=== PATIENT | female | born 1950 | race Caucasian/White ===

== ENCOUNTER 2017-08-02 23:36 | Inpatient (IN) | payer OTHER, MEDICARE ==
[~2017-08-02] VITALS: Ht 172.7 cm; Wt 108.9 kg
[~2017-08-02 23:36] MED LIST: ASPI81 PO; CLON.1 PO; COZA100T PO; FLEC50TA PO; FURO20TA PO; IBUP-238 PO; METO25 PO; PRED20 PO; SUMA5I; TRAM50 PO
[2017-08-02 23:49] VITALS: BP 212/174; PULSE 113; TEMP 101.7; O2SAT 97
[2017-08-03] VITALS (9 sets, daily range): BP systolic 148–191; BP diastolic 67–86; PULSE 87–107; RESP 18; TEMP 98.1–98.6; O2SAT 93–98
--- NOTE | 2017-08-03 01:38 | PD ---
HPI Chief Complaint: Cold / Flu Symptoms Time Seen by Provider: 01:34 Travel History International Travel<30 days: No Contact w/Intl Traveler<30days: No Traveled to known affect area: No History of Present Illness HPI 67-year-old female patient with previous history of pneumonia, here because she has been having several days of coughing, shortness of breath, feeling more tired than usual, vomiting 1. She denies any abdominal pain, diarrhea, or any other symptoms. She states that she takes care of her grandson who also goes to daycare and he has been having some cough and cold symptoms recently and she keeps getting his viral infections. She also had a fever today. Modifying Factors: None Associated Signs & Symptoms: Cough, shortness of breath, feeling more tired, vomiting, fever Risk Factors: Possible sick contact, grandson PFSH Past Medical History Arthritis: Yes Atrial Fibrillation: Yes Blood Disorders: No Heart Rhythm Problems: Yes (A-FIB) Cancer: No Cardiovascular Problems: Yes Diabetes: No Diminished Hearing: No Endocrine: No Glaucoma: No Genitourinary: No Hepatitis: No Hiatal Hernia: No Hypertension: Yes Immune Disorder: No Medical other: Yes (arthritis) Musculoskeletal: Yes Neurologic: Yes Psychiatric: No Reproductive: No Respiratory: No Immunizations Current: Yes Migraines: Yes Thyroid Disease: No ?: Not Past Surgical History Abdominal Surgery: Yes (TAHBSO) Appendectomy: Yes Gynecologic Surgery: Yes (total hysterectomy) Hysterectomy: Yes Joint Replacement: Yes (right hip) Other Surgery: Yes Social History Alcohol Use: No Tobacco Use: No Substance Use: No Allergies-Medications (Allergen,Severity, Reaction): Coded Allergies: prochlorperazine (Unverified Allergy, Intermediate, IRRITABILITY, 08/03/17) Reported Meds & Prescriptions Reported Meds & Active Scripts Active Ultram (Tramadol HCl) 50 Mg Tab 50 Mg PO Q6H PRN FOR PAIN Deltasone 20 Mg Tab (Prednisone) 20 Mg Tab 20 Mg PO BID Motrin (Ibuprofen) 800 Mg Tab 800 Mg PO TIDPRN FOR PAIN Reported Metoprolol Tartrate 25 mg (Metoprolol Tartrate) 25 Mg Tab 25 Mg PO BID Flecainide Acetate Unknown Strength Tab Unknown Dose PO Q12 Cozaar (Losartan Potassium) 100 Mg Tab 100 Mg PO Furosemide 20 Mg Tab 20 Mg PO Imitrex (Sumatriptan Succinate) 5 Mg Naspr 5 Mg NA PRN Aspirin 81 Mg Tab 81 Mg PO DAILY Catapres 0.1 mg (Clonidine HCl) 0.1 Mg Tab 0.1 Mg PO BID Review of Systems Except as stated in HPI: all other systems reviewed are Neg Physical Exam Narrative GENERAL: Well-developed elderly female patient currently in mild distress. Awake and oriented 3. SKIN: Focused skin assessment warm/dry. HEAD: Atraumatic. Normocephalic. EYES: Pupils equal and round. No scleral icterus. No injection or drainage. ENT: No nasal bleeding or discharge. Mucous membranes pink and moist. NECK: Trachea midline. No JVD. Supple. CARDIOVASCULAR: Regular rate and rhythm. No murmur appreciated. RESPIRATORY: Mild accessory muscle use. Wheezing throughout bilaterally. Breath sounds equal bilaterally. GASTROINTESTINAL: Abdomen soft, non-tender, nondistended. Hepatic and splenic margins not palpable. MUSCULOSKELETAL: No obvious deformities. No clubbing. No cyanosis. No edema. NEUROLOGICAL: Awake and alert. No obvious cranial nerve deficits. Motor grossly within normal limits. Normal speech. PSYCHIATRIC: Appropriate mood and affect; insight and judgment normal. Data Data Last Documented VS Vital Signs Date Time Temp Pulse Resp B/P (MAP) Pulse Ox O2 Delivery O2 Flow Rate FiO2 08/03/17 02:30 100 18 172/74 (106) 98 Room Air 08/02/17 23:49 101.7 Orders Orders Complete Blood Count With Diff (08/03/17 01:34) Comprehensive Metabolic Panel (08/03/17 01:34) B-Type Natriuretic Peptide (08/03/17 01:34) Influenzae A/B Antigen (08/03/17 01:34) Blood Culture (08/03/17 01:34) Iv Access Insert/Monitor (08/03/17 01:34) Electrocardiogram (08/03/17 01:34) Ecg Monitoring (08/03/17:34) Oximetry (08/03/17 01:34) Oxygen Administration (08/03/17 01:34) Chest, Single Ap (08/03/17 01:34) Sodium Chloride 0.9% Flush (Ns Flush) (08/03/17 01:45) Methylprednisolone So Succ Inj (Solumedr (08/03/17 01:45) Albuterol-Ipratropium Neb (Duoneb Neb) (08/03/17 01:45) Sodium Chlorid 0.9% 500 Ml Inj (Ns 500 M (08/03/17 01:45) Acetaminophen (Tylenol) (08/03/17 01:45) Ceftriaxone Inj (Rocephin Inj) (08/03/17 02:30) Azithromycin Inj (Zithromax Inj) (08/03/17 02:30) Lactic Acid Sepsis Protocol (08/03/17 02:31) Admit Order (Ed Use Only) (08/03/17 03:38) Labs Laboratory Tests Test 08/03/17 01:45 08/03/17 03:00 White Blood Count 21.0 TH/MM3 Red Blood Count 4.52 MIL/MM3 Hemoglobin 11.8 GM/DL Hematocrit 33.9 % Mean Corpuscular Volume 75.0 FL Mean Corpuscular Hemoglobin 26.0 PG Mean Corpuscular Hemoglobin Concent 34.7 % Red Cell Distribution Width 15.0 % Platelet Count 173 TH/MM3 Mean Platelet Volume 8.2 FL Neutrophils (%) (Auto) 89.4 % Lymphocytes (%) (Auto) 4.9 % Monocytes (%) (Auto) 5.4 % Eosinophils (%) (Auto) 0.1 % Basophils (%) (Auto) 0.2 % Neutrophils # (Auto) 18.8 TH/MM3 Lymphocytes # (Auto) 1.0 TH/MM3 Monocytes # (Auto) 1.1 TH/MM3 Eosinophils # (Auto) 0.0 TH/MM3 Basophils # (Auto) 0.0 TH/MM3 CBC Comment DIFF FINAL Differential Comment Blood Urea Nitrogen 18 MG/DL Creatinine 0.51 MG/DL Random Glucose 125 MG/DL Total Protein 6.7 GM/DL Albumin 3.7 GM/DL Calcium Level 8.8 MG/DL Alkaline Phosphatase 79 U/L Aspartate Amino Transf (AST/SGOT) 17 U/L Alanine Aminotransferase (ALT/SGPT) 21 U/L Total Bilirubin 0.7 MG/DL Sodium Level 136 MEQ/L Potassium Level 3.2 MEQ/L Chloride Level 102 MEQ/L Carbon Dioxide Level 26.5 MEQ/L Anion Gap 8 MEQ/L Estimat Glomerular Filtration Rate 120 ML/MIN B-Type Natriuretic Peptide 140 PG/ML Lactic Acid Level 0.9 mmol/L MDM Medical Decision Making Medical Screen Exam Complete: Yes Emergency Medical Condition: Yes Medical Record Reviewed: Yes Interpretation(s) Laboratory Tests Test 08/03/17 01:45 08/03/17 03:00 White Blood Count 21.0 TH/MM3 (4.0-11.0) Hematocrit 33.9 % (35.0-46.0) Mean Corpuscular Volume 75.0 FL (80.0-100.0) Mean Corpuscular Hemoglobin 26.0 PG (27.0-34.0) Neutrophils (%) (Auto) 89.4 % (16.0-70.0) Lymphocytes (%) (Auto) 4.9 % (9.0-44.0) Neutrophils # (Auto) 18.8 TH/MM3 (1.8-7.7) Monocytes # (Auto) 1.1 TH/MM3 (0-0.9) Random Glucose 125 MG/DL (74-106) Potassium Level 3.2 MEQ/L (3.5-5.1) B-Type Natriuretic Peptide 140 PG/ML (0-100) Last 24 hours Impressions Chest X-Ray 08/03/17 0134 Signed Impressions: Service Date/Time: Thursday, August 03, 2017 01:43 - CONCLUSION: Mild right base consolidation. Panfilo Rosas MD Differential Diagnosis Bronchitis versus pneumonia versus influenza Narrative Course Chest x-ray shows right-sided pneumonia. She was given nebulizers with improvement breathing. Her lab work shows significant leukocytosis. IV antibiotics were initiated after blood cultures are drawn. Case is discussed with Dr. Bullock for admission. Diagnosis Primary Impression: Pneumonia Admitting Information Admitting Physician Requests: Admit Glenda Gil MD Aug 03, 2017 01:38
[2017-08-03] MEDS ORDERED: SODIUM CHLORID 0.9% 500 ML INJ 500 ML IV ONE (01:45)
[2017-08-03] MEDS ORDERED: methylPREDNISolone SOD SUCC 125 MG/2 ML VIAL IV PUSH ONE (01:45)
[2017-08-03] MEDS ORDERED: SODIUM CHLORIDE 0.9% FLUSH 10 ML FLUSH IVF PRN (01:45)
[2017-08-03] MEDS ORDERED: ACETAMINOPHEN 500 MG CPLT PO ONE (01:45)
[2017-08-03] MEDS: RESP: ALBUTEROL 2.5 MG/IPRATROPIUM 0.5 MG NEB (SCH) INH (01:59)
--- NOTE | 2017-08-03 02:03 | RADRPT ---
EXAM DATE/TIME: 08/03/2017 01:43 [facility] COMPARISON: No previous studies available for comparison. INDICATIONS : Third episode of cold and flu symptoms since late March of 2017. MEDICAL HISTORY : None. SURGICAL HISTORY : None. ENCOUNTER: Initial ACUITY: 3 months PAIN SCORE: 0/10 LOCATION: Bilateral chest FINDINGS: Mild atelectasis versus infiltrates in right lung base. Left lung is clear. No pleural effusion or pn eumothorax on either side. Heart size normal. CONCLUSION: Mild right base consolidation. Panfilo Rosas MD on August 03, 2017 at 2:01 Board Certified Radiologist. This report was verified electronically.
[2017-08-03 02:12] LABS: AUTOMATED NEUTROPHIL # 18.8 TH/MM3 (1.8-7.7); BASOPHIL % 0.2 % (0.0-2.0); EOSINOPHIL % 0.1 % (0.0-4.0); HEMATOCRIT 33.9 % (35.0-46.0); HEMOGLOBIN 11.8 GM/DL (11.6-15.3); LYMPH % 4.9 % (9.0-44.0); MEAN CORPUSCULAR HGB CONC 34.7 % (32.0-36.0); MEAN PLATELET VOLUME 8.2 FL (7.0-11.0); MONO % 5.4 % (0.0-8.0); MONOCYTE # 1.1 TH/MM3 (0-0.9); NEUT % 89.4 % (16.0-70.0); PLATELET COUNT 173 TH/MM3 (150-450); RED BLOOD COUNT 4.52 MIL/MM3 (4.00-5.30)
[2017-08-03 02:23] LABS: ALBUMIN 3.7 GM/DL (3.4-5.0); ALT (GPT) 21 U/L (10-53); AST (GOT) 17 U/L (15-37); BICARBONATE 26.5 MEQ/L (21.0-32.0); BLOOD UREA NITROGEN 18 MG/DL (7-18); CALCIUM 8.8 MG/DL (8.5-10.1); CHLORIDE 102 MEQ/L (98-107); CREATININE 0.51 MG/DL (0.50-1.00); GLOMERULAR FILTRATION RATE 120 ML/MIN (>89); GLUCOSE,RANDOM 125 MG/DL (74-106); SODIUM (NA) 136 MEQ/L (136-145)
[2017-08-03 02:25] LABS: ALKALINE PHOSPHATASE 79 U/L (45-117); TOTAL BILIRUBIN ADULT 0.7 MG/DL (0.2-1.0); TOTAL PROTEIN 6.7 GM/DL (6.4-8.2)
[2017-08-03] MEDS ORDERED: AZITHROMYCIN INJ 500 MG in SODIUM CHLOR 0.9% 250 ML INJ 250 ML IV STA (02:30)
[2017-08-03] MEDS ORDERED: cefTRIAXone INJ 2,000 MG in SODIUM CHLORIDE 0.9% INJ 100 ML IV STA (02:30)
[2017-08-03] MEDS ORDERED: SODIUM CHLOR 0.9% 1000 ML INJ 1,000 ML IV SCH (03:41)
[2017-08-03] MEDS ORDERED: LACTULOSE SYRUP 20 GM/30 ML CUP PO PRN (03:45)
[2017-08-03] MEDS ORDERED: SODIUM CHLORIDE 0.9% FLUSH 10 ML FLUSH IV FLUSH PRN (03:45)
[2017-08-03] MEDS ORDERED: ACETAMINOPHEN/HYDROcodone 325 MG/5 MG TAB PO PRN (03:45)
[2017-08-03] MEDS ORDERED: RESP: ALBUTEROL 2.5 MG/IPRATROPIUM 0.5 MG NEB (PRN) NEB (03:45)
[2017-08-03] MEDS ORDERED: BISACODYL 10 MG SUPP RECTAL PRN (03:45)
[2017-08-03] MEDS ORDERED: ONDANSETRON HCL 4 MG/2 ML VIAL IVP PRN (03:45)
[2017-08-03] MEDS ORDERED: ACETAMINOPHEN 325 MG TAB PO PRN (03:45)
[2017-08-03] MEDS ORDERED: SENNOSIDES 8.6 MG TAB PO PRN (03:45)
[2017-08-03] MEDS ORDERED: MORPHINE SULFATE 2 MG/ML INJ IV PUSH PRN (03:45)
[2017-08-03] MEDS ORDERED: MAGNESIUM HYDROXIDE SUSP 30 ML CUP PO PRN (03:45)
--- NOTE | 2017-08-03 04:24 | HHI.HP ---
[facility] [place] [facility] Janis Reza MD Admission Diagnosis pneumonia Diagnoses: (1) Sepsis Diagnosis: Principal (2) PNA (pneumonia) Diagnosis: Principal (3) A-fib Diagnosis: Principal (4) HTN (hypertension) Travel History International Travel<30 Days: No Contact w/Intl Traveler <30 Da: No Traveled to Known Affected Are: No History of Present Illness This is a 67-year-old female with a PMH of HTN, A. fib on ASA and Arthritis presented to the ER with complaints of SOB and cough x2-3 days. States she's been having symptoms since March and has been on and off antibiotics as other family members have been sick as well. States she had been feeling better until a few days ago when she developed cough and congestion. Today w/ fever at home in addition to SOB. On arrival, BP 212/174, HR 113, O2 sat 97% on RA, Temp 101.7. WBC 21. Chemistry essentially unremarkable except for K+ 3.2. CXR with mild right base consolidation. S/p Blood Cultures, Rocephin/ Zithro in ER. Review of Systems Except as stated in HPI: all other systems reviewed are Neg ROS: 14 point review of systems otherwise negative. Past Family Social History Past Medical History PMH: HTN, A. fib on ASA and Arthritis Past Surgical History PAST SURGICAL HISTORY: Hysterectomy, Appendectomy, Right Hip Replacement Allergies: Coded Allergies: prochlorperazine (Unverified Allergy, Intermediate, IRRITABILITY, 08/03/17) Family History PAST FAMILY HISTORY: Reviewed. No h/o DM or CAD Social History PAST SOCIAL HISTORY: Negative for alcohol, tobacco or drugs. Physical Exam Vital Signs Vital Signs Date Time Temp Pulse Resp B/P (MAP) Pulse Ox O2 Delivery O2 Flow Rate FiO2 08/03/17 04:07 96 08/03/17 02:30 100 18 172/74 (106) 98 Room Air 08/03/17 00:43 107 18 191/86 (121) 98 Room Air 08/03/17 00:30 18 98 Room Air 08/03/17 00:30 97 Room Air 08/02/17 23:49 101.7 113 212/174 (187) 97 Physical Exam PE: GENERAL: Pleasant middle-aged white female in no acute distress. HEENT: PERRLA, EOMI. No scleral icterus or conjunctival pallor. No lid lag or facial droop. CARDIOVASCULAR: Regular rate and rhythm. No obvious murmurs to auscultation. No chest tenderness to palpation. RESPIRATORY: No obvious rhonchi or wheezing. Clear to auscultation. Breath sounds equal bilaterally. GASTROINTESTINAL: Abdomen soft, non-tender, nondistended. BS normal. MUSCULOSKELETAL: Extremities without clubbing, cyanosis, or edema. No obvious deformities. NEUROLOGICAL: Awake, alert and oriented x4. No focal neurologic deficits. Moving both upper and lower extremities spontaneously. Laboratory Laboratory Tests Test 08/03/17 01:45 08/03/17 03:00 White Blood Count 21.0 Red Blood Count 4.52 Hemoglobin 11.8 Hematocrit 33.9 Mean Corpuscular Volume 75.0 Mean Corpuscular Hemoglobin 26.0 Mean Corpuscular Hemoglobin Concent 34.7 Red Cell Distribution Width 15.0 Platelet Count 173 Mean Platelet Volume 8.2 Neutrophils (%) (Auto) 89.4 Lymphocytes (%) (Auto) 4.9 Monocytes (%) (Auto) 5.4 Eosinophils (%) (Auto) 0.1 Basophils (%) (Auto) 0.2 Neutrophils # (Auto) 18.8 Lymphocytes # (Auto) 1.0 Monocytes # (Auto) 1.1 Eosinophils # (Auto) 0.0 Basophils # (Auto) 0.0 CBC Comment DIFF FINAL Differential Comment Blood Urea Nitrogen 18 Creatinine 0.51 Random Glucose 125 Total Protein 6.7 Albumin 3.7 Calcium Level 8.8 Alkaline Phosphatase 79 Aspartate Amino Transf (AST/SGOT) 17 Alanine Aminotransferase (ALT/SGPT) 21 Total Bilirubin 0.7 Sodium Level 136 Potassium Level 3.2 Chloride Level 102 Carbon Dioxide Level 26.5 Anion Gap 8 Estimat Glomerular Filtration Rate 120 B-Type Natriuretic Peptide 140 Lactic Acid Level 0.9 Date/Time Source Procedure Growth Status 08/03/17 01:45 Blood Peripheral Aerobic Blood Culture Pending Received 08/03/17 01:45 Blood Peripheral Anaerobic Blood Culture Pending Received 08/03/17 01:50 Nasal Washing Influenza Types A,B Antigen (VIOLETTA) - Final NEGATIVE FOR FLU A AND B ANTIGEN.... Complete Result Diagram: 08/03/1714408/03/17144 Caprini VTE Risk Assessment Caprini VTE Risk Assessment: No/Low Risk (score <= 1) Caprini Risk Assessment Model Point Value = 1 Point Value = 2 Point Value = 3 Point Value = 5 Age 41-60 Minor surgery BMI > 25 kg/m2 Swollen legs Varicose veins or History of unexplained or recurrent spontaneous Oral contraceptives or hormone replacement Sepsis (< 1 month) Serious lung disease, including pneumonia (< 1 month) Abnormal pulmonary function Acute myocardial infarction Congestive heart failure (< 1 month) History of inflammatory bowel disease Medical patient at bed rest Age 61-74 Arthroscopic surgery Major open surgery (> 45 min) Laparoscopic surgery (> 45 min) Malignancy Confined to bed (> 72 hours) Immobilizing plaster cast Central venous access Age >= 75 History of VTE Family history of VTE Factor V Leiden Prothrombin [id number] Lupus anticoagulant Anticardiolipin antibodies Elevated serum homocysteine Heparin-induced thrombocytopenia Other congenital or acquired thrombophilia Stroke (< 1 month) Elective arthroplasty Hip, pelvis, or leg fracture Acute spinal cord injury (< 1 month) Prophylaxis Regimen Total Risk Factor Score Risk Level Prophylaxis Regimen 0-1 Low Early ambulation 2 Moderate Order ONE of the following: *Sequential Compression Device (SCD) *Heparin 5000 units SQ BID 3-4 Higher Order ONE of the following medications: *Heparin 5000 units SQ TID *Enoxaparin/Lovenox 40 mg SQ daily (WT < 150 kg, CrCl > 30 mL/min) *Enoxaparin/Lovenox 30 mg SQ daily (WT < 150 kg, CrCl > 10-29 mL/min) *Enoxaparin/Lovenox 30 mg SQ BID (WT < 150 kg, CrCl > 30 mL/min) AND/OR *Sequential Compression Device (SCD) 5 or more Highest Order ONE of the following medications: *Heparin 5000 units SQ TID (Preferred with Epidurals) *Enoxaparin/Lovenox 40 mg SQ daily (WT < 150 kg, CrCl > 30 mL/min) *Enoxaparin/Lovenox 30 mg SQ daily (WT < 150 kg, CrCl > 10-29 mL/min) *Enoxaparin/Lovenox 30 mg SQ BID (WT < 150 kg, CrCl > 30 mL/min) AND *Sequential Compression Device (SCD) Assessment and Plan Problem List: (1) Sepsis ICD Code: A41.9 - Sepsis, unspecified organism (2) PNA (pneumonia) ICD Code: J18.9 - Pneumonia, unspecified organism (3) HTN (hypertension) ICD Code: I10 - Essential (primary) hypertension (4) A-fib ICD Code: I48.91 - Unspecified atrial fibrillation Assessment and Plan A/P: 1. Sepsis: Temp 101.7, HR 113, WBC 21, Source-PNA. S/p Blood Cultures, Rocephin/Zithro IV. Follow up cultures, continue IV Abx. 2. PNA: cough/fever/SOB. CXR w/ mild right base consolidation, images reviewed by me. Check Sputum Cultures. Continue w/ IV Abx. DuoNeb prn. 3. A-fib: Chronic. On Metoprolol and ASA, will resume home medications. Telemetry. 4. HTN: Uncontrolled. BP 212/174, HR 113 on arrival. Resume home medications once verified. Monitor BP. Antihypertensives as needed. 5. DVT Prophylaxis: Lovenox 6. Social work for d/c planning as needed. 7. Case discussed w/ ER physician at length, labs/records/imaging reviewed by me. Physician Certification 2 Midnight Certification Type: Admission for Inpatient Services Order for Inpatient Services The services are ordered in accordance with Medicare regulations or non- Medicare payer requirements, as applicable. In the case of services not specified as inpatient-only, they are appropriately provided as inpatient services in accordance with the 2-midnight benchmark. Estimated LOS (days): 2 days is the estimated time the patient will need to remain in the hospital, assuming treatment plan goals are met and no additional complications. Post-Hospital Plan: Not yet determined Lorena Lynn MD Aug 03, 2017 04:24
[2017-08-03] MEDS ORDERED: POTASSIUM CHLORIDE 10 MEQ CAP PO ONE (07:45)
[2017-08-03] MEDS: DOCUSATE SODIUM 50 MG/SENNA 8.6 MG TAB PO SCH ×2 (09:00→21:00)
[2017-08-03] MEDS: SODIUM CHLORIDE 0.9% FLUSH 10 ML FLUSH IV FLUSH SCH ×2 (10:56→21:00)
[2017-08-03] MEDS: NS + KCL 20 MEQ INJ 1,000 ML IV SCH ×3 (10:56→22:30)
[2017-08-03] MEDS: guaiFENesin E.R. 600 MG TAB PO SCH ×2 (10:57→21:00)
[2017-08-03] MEDS: ENOXAPARIN SODIUM 40 MG/0.4 ML SYRINGE SQ SCH (10:57)
--- NOTE | 2017-08-03 13:56 | HHI.PR ---
Subjective Remarks Patient states that she does not feel well. She feels exhausted and warm. Denies chest pain, dyspnea, nausea, vomiting. Objective Vitals Vital Signs Date Time Temp Pulse Resp B/P (MAP) Pulse Ox O2 Delivery O2 Flow Rate FiO2 08/03/17 12:00 98.1 94 18 168/74 (105) 96 08/03/17 08:00 98.4 104 18 158/81 (106) 93 08/03/17 05:45 98.6 99 18 148/67 (94) 98 08/03/17 05:08 08/03/17 04:07 96 08/03/17 02:30 100 18 172/74 (106) 98 Room Air 08/03/17 00:43 107 18 191/86 (121) 98 Room Air 08/03/17 00:30 18 98 Room Air 08/03/17 00:30 97 Room Air 08/02/17 23:49 101.7 113 212/174 (187) 97 I/O 08/02/17 08/02/17 08/02/17 08/03/17 08/03/17 08/03/17 06:59 14:59 22:59 06:59 14:59 22:59 Intake Total 850 ml Balance 850 ml Intake IV Total 850 ml Result Diagram: 08/03/17 0145 08/03/17 014 Imaging Last Impressions Chest X-Ray 08/03/17 013 Signed Impressions: Service Date/Time: Thursday, August 03, 2017 01:43 - CONCLUSION: Mild right base consolidation. Panfilo Rosas MD Objective Remarks General: No acute distress. Heart: Regular rate and rhythm. No murmur. Lungs: Clear to auscultation bilaterally. No wheezes, rales, or rhonchi. Breathing is nonlabored. Abdomen: Soft, nontender, nondistended. Extremities: No lower extremity edema. Psych: Alert and oriented. Procedures None Urinary Catheter: No Vascular Central Line Catheter: No A/P Problem List: (1) Sepsis ICD Code: A41.9 - Sepsis, unspecified organism (2) PNA (pneumonia) ICD Code: J18.9 - Pneumonia, unspecified organism (3) HTN (hypertension) ICD Code: I10 - Essential (primary) hypertension (4) A-fib ICD Code: I48.91 - Unspecified atrial fibrillation Assessment and Plan 1. Sepsis: Patient presented with fever, tachycardia, leukocytosis. Source is pneumonia. Blood cultures are pending. Continue Rocephin, azithromycin. DuoNeb as needed. Supplemental oxygen as needed. 2. Atrial fibrillation: Chronic. Continue metoprolol, aspirin. Monitor on telemetry. 3. Hypertension: Poorly controlled. Resume home medications. Patient's nurse is completing the medication reconciliation at this time. 4. Hypokalemia: Supplement potassium. 5. DVT prophylaxis: Lovenox. Juan M Squires MD Aug 03, 2017 13:56
[2017-08-03] MEDS ORDERED: CLON0.3T PO (15:11)
[2017-08-03] MEDS ORDERED: SPIRCAP INH (15:11)
[2017-08-03] MEDS ORDERED: SIMV20TA PO (15:11)
[2017-08-03] MEDS ORDERED: POTA10CA PO (15:11)
[2017-08-03] MEDS ORDERED: AMLO5 PO (15:11)
[2017-08-03] MEDS: cefTRIAXone INJ 1,000 MG in SODIUM CHLORIDE 0.9% INJ 100 ML IV SCH (22:00)
[2017-08-03] MEDS: AZITHROMYCIN INJ 500 MG in SODIUM CHLOR 0.9% 250 ML INJ 250 ML IV SCH (23:00)
[2017-08-03] MEDS ORDERED: cloNIDine HCL 0.1 MG TAB PO SCH (23:30)
[2017-08-03] MEDS: METOPROLOL TARTRATE 25 MG TAB PO SCH (23:30)
[2017-08-03] MEDS: amLODIPine BESYLATE 5 MG TAB PO SCH (23:30)
--- NOTE | 2017-08-03 23:52 | EKG ---
Date Performed: 08/03/2017 Time Performed: 01:50:19 PTAGE: 67 years EKG: SINUS TACHYCARDIA NONSPECIFIC ST & T-WAVE ABNORMALITY ABNORMAL RHYTHM ECG PREVIOUS TRACING : 06/22/2008 09.56 Compared to prior tracing, rate has increased with ST/T wa ve changes noted DOCTOR: Cesar Brenner Interpretating Date/Time 08/03/2017 23:51:33
[2017-08-04] VITALS: BP 180/88; PULSE 88; PULSE 93; RESP 20; TEMP 97.8; O2SAT 97
[2017-08-04 04:00] VITALS: BP 185/91; PULSE 68; PULSE 71; RESP 20; TEMP 97.9; O2SAT 97
[2017-08-04] MEDS ORDERED: traMADol HCL 50 MG TAB PO PRN (07:30)
[2017-08-04 08:00] VITALS: BP 168/74; PULSE 81; PULSE 84; RESP 15; TEMP 97.9; O2SAT 97
[2017-08-04 08:47] LABS: AUTOMATED NEUTROPHIL # 11.8 TH/MM3 (1.8-7.7); BASOPHIL % 0.1 % (0.0-2.0); EOSINOPHIL % 0.2 % (0.0-4.0); HEMATOCRIT 31.1 % (35.0-46.0); HEMOGLOBIN 10.6 GM/DL (11.6-15.3); LYMPH % 14.2 % (9.0-44.0); LYMPHOCYTE # 2.2 TH/MM3 (1.0-4.8); MEAN CELL VOLUME 76.8 FL (80.0-100.0); MEAN CORPUSCULAR HEMOGLOBIN 26.1 PG (27.0-34.0); MEAN PLATELET VOLUME 8.6 FL (7.0-11.0); MONO % 7.9 % (0.0-8.0); MONOCYTE # 1.2 TH/MM3 (0-0.9); NEUT % 77.6 % (16.0-70.0); PLATELET COUNT 163 TH/MM3 (150-450); RED BLOOD COUNT 4.05 MIL/MM3 (4.00-5.30); RED CELL DISTRIBUTION WIDTH 15.4 % (11.6-17.2); WHITE BLOOD COUNT 15.2 TH/MM3 (4.0-11.0)
[2017-08-04] MEDS: DOCUSATE SODIUM 50 MG/SENNA 8.6 MG TAB PO SCH ×2 (09:00→21:00)
[2017-08-04] MEDS: TIOTROPIUM BROMIDE 18 MCG INH INH SCH (09:00)
[2017-08-04] MEDS ORDERED: POTASSIUM CHLORIDE 10 MEQ CAP PO SCH (09:00)
[2017-08-04] MEDS ORDERED: cloNIDine HCL 0.3 MG TAB PO SCH (09:00)
[2017-08-04] MEDS: SODIUM CHLORIDE 0.9% FLUSH 10 ML FLUSH IV FLUSH SCH ×2 (09:00→21:29)
[2017-08-04 09:15] LABS: ALBUMIN 3.1 GM/DL (3.4-5.0); AST (GOT) 14 U/L (15-37); BICARBONATE 24.7 MEQ/L (21.0-32.0); BLOOD UREA NITROGEN 13 MG/DL (7-18); CALCIUM 8.5 MG/DL (8.5-10.1); CHLORIDE 105 MEQ/L (98-107); CREATININE 0.43 MG/DL (0.50-1.00); GLOMERULAR FILTRATION RATE 146 ML/MIN (>89); GLUCOSE,RANDOM 91 MG/DL (74-106); SODIUM (NA) 138 MEQ/L (136-145)
[2017-08-04 09:26] LABS: ALKALINE PHOSPHATASE 72 U/L (45-117); ALT (GPT) 20 U/L (10-53); MAGNESIUM 1.9 MG/DL (1.5-2.5); TOTAL BILIRUBIN ADULT 0.5 MG/DL (0.2-1.0); TOTAL PROTEIN 6.1 GM/DL (6.4-8.2)
--- NOTE | 2017-08-04 09:49 | HHI.PR ---
Subjective Remarks Follow up sepsis, pneumonia, hypertension. The patient states that she feels slightly better today. Still coughing. Occasional shortness of breath. No chest pain. Objective Vitals Vital Signs Date Time Temp Pulse Resp B/P (MAP) Pulse Ox O2 Delivery O2 Flow Rate FiO2 08/04/17 08:00 97.9 84 15 168/74 (105) 97 08/04/17 04:00 68 08/04/17 04:00 Room Air 08/04/17 04:00 97.9 71 20 185/91 (122) 97 08/04/17 00:00 97.8 88 20 180/88 (118) 97 08/04/17 00:00 Room Air 08/04/17 00:00 93 08/03/17 20:00 87 08/03/17 20:00 Room Air 08/03/17 16:00 98.4 91 18 162/74 (103) 95 08/03/17 16:00 89 08/03/17 12:00 99 08/03/17 12:00 98.1 94 18 168/74 (105) 96 I/O 08/03/17 08/03/17 08/03/17 08/04/17 08/04/17 08/04/17 07:00 15:00 23:00 07:00 15:00 23:00 Intake Total 850 ml 1100 ml 950 ml Balance 850 ml 1100 ml 950 ml Intake IV Total 850 ml 1100 ml 950 ml Result Diagram: 08/04/1770408/04/17 0705 Imaging Last Impressions Chest X-Ray 08/03/17 0134 Signed Impressions: Service Date/Time: Thursday, August 03, 2017 01:43 - CONCLUSION: Mild right base consolidation. Panfilo Rosas MD Objective Remarks General: No acute distress. Heart: Regular rate and rhythm. No murmur. Lungs: Clear to auscultation bilaterally. No wheezes, rales, or rhonchi. Breathing is nonlabored. Abdomen: Soft, nontender, nondistended. Extremities: No lower extremity edema. Psych: Alert and oriented. Procedures None Urinary Catheter: No Vascular Central Line Catheter: No A/P Problem List: (1) Sepsis ICD Code: A41.9 - Sepsis, unspecified organism (2) PNA (pneumonia) ICD Code: J18.9 - Pneumonia, unspecified organism (3) HTN (hypertension) ICD Code: I10 - Essential (primary) hypertension (4) A-fib ICD Code: I48.91 - Unspecified atrial fibrillation Assessment and Plan 1. Sepsis: Patient presented with fever, tachycardia, leukocytosis. Source is pneumonia. Blood cultures are pending. Continue Rocephin, azithromycin. DuoNeb as needed. Supplemental oxygen as needed. 2. Atrial fibrillation: Chronic. Continue metoprolol, aspirin, flecainide. Monitor on telemetry. 3. Hypertension: Restart losartan. Continue clonidine (patient takes 0.2 mg every afternoon, no clonidine in the morning). 4. Hypokalemia: Supplement potassium. Recheck labs in the morning. 5. DVT prophylaxis: Lovenox. Discharge Planning Pending further clinical improvement. Juan M Squires MD Aug 04, 2017 09:49
[2017-08-04] MEDS ORDERED: POTASSIUM CHLORIDE 10 MEQ CONTROLLED RELEASE TAB PO ONE (10:30)
[2017-08-04] MEDS: LOSARTAN 50 MG TAB PO SCH (11:13)
[2017-08-04] MEDS: PRAVASTATIN SOD 40 MG TAB PO SCH (11:13)
[2017-08-04] MEDS: ASPIRIN 81 MG CHEW TAB PO SCH (11:13)
[2017-08-04] MEDS: FUROSEMIDE 20 MG TAB PO SCH (11:14)
[2017-08-04] MEDS: guaiFENesin E.R. 600 MG TAB PO SCH ×2 (11:14→21:27)
[2017-08-04] MEDS: METOPROLOL TARTRATE 25 MG TAB PO SCH ×2 (11:14→21:27)
[2017-08-04] MEDS: FLECAINIDE ACETATE 100 MG TAB PO SCH ×2 (11:42→21:27)
[2017-08-04] MEDS: amLODIPine BESYLATE 5 MG TAB PO SCH ×2 (11:44→21:26)
[2017-08-04] MEDS: ENOXAPARIN SODIUM 40 MG/0.4 ML SYRINGE SQ SCH (11:54)
[2017-08-04 12:00] VITALS: BP 165/79; PULSE 103; PULSE 75; RESP 16; TEMP 96.7; O2SAT 93
[2017-08-04] MEDS: NS + KCL 20 MEQ INJ 1,000 ML IV SCH (15:56)
[2017-08-04 16:00] VITALS: BP 186/88; PULSE 76; PULSE 88; RESP 17; TEMP 99; O2SAT 99
[2017-08-04] MEDS ORDERED: cloNIDine HCL 0.2 MG TAB PO SCH (16:00)
[2017-08-04 21:22] VITALS: BP 162/77; PULSE 80; RESP 18; TEMP 99.2; O2SAT 95
[2017-08-04] MEDS: cefTRIAXone INJ 1,000 MG in SODIUM CHLORIDE 0.9% INJ 100 ML IV SCH (21:30)
[2017-08-04] MEDS: AZITHROMYCIN INJ 500 MG in SODIUM CHLOR 0.9% 250 ML INJ 250 ML IV SCH (22:32)
[2017-08-05] VITALS (7 sets, daily range): BP systolic 149–153; BP diastolic 56–87; PULSE 73–84; RESP 18–20; TEMP 97.9–98.7; O2SAT 95–99
[2017-08-05] MEDS: NS + KCL 20 MEQ INJ 1,000 ML IV SCH (05:22)
[2017-08-05 07:57] LABS: AUTOMATED NEUTROPHIL # 5.5 TH/MM3 (1.8-7.7); BASOPHIL % 0.4 % (0.0-2.0); EOSINOPHIL # 0.1 TH/MM3 (0-0.4); EOSINOPHIL % 1.5 % (0.0-4.0); HEMATOCRIT 29.1 % (35.0-46.0); LYMPH % 21.7 % (9.0-44.0); LYMPHOCYTE # 1.8 TH/MM3 (1.0-4.8); MEAN CELL VOLUME 77.4 FL (80.0-100.0); MEAN CORPUSCULAR HEMOGLOBIN 26.5 PG (27.0-34.0); MEAN CORPUSCULAR HGB CONC 34.3 % (32.0-36.0); MEAN PLATELET VOLUME 8.9 FL (7.0-11.0); MONO % 10.8 % (0.0-8.0); MONOCYTE # 0.9 TH/MM3 (0-0.9); NEUT % 65.6 % (16.0-70.0); PLATELET COUNT 140 TH/MM3 (150-450); RED BLOOD COUNT 3.76 MIL/MM3 (4.00-5.30); RED CELL DISTRIBUTION WIDTH 15.3 % (11.6-17.2); WHITE BLOOD COUNT 8.4 TH/MM3 (4.0-11.0)
[2017-08-05] MEDS: amLODIPine BESYLATE 5 MG TAB PO SCH (08:00)
[2017-08-05] MEDS: FUROSEMIDE 20 MG TAB PO SCH (08:00)
[2017-08-05] MEDS: ASPIRIN 81 MG CHEW TAB PO SCH (08:01)
[2017-08-05] MEDS: ENOXAPARIN SODIUM 40 MG/0.4 ML SYRINGE SQ SCH (08:01)
[2017-08-05] MEDS: DOCUSATE SODIUM 50 MG/SENNA 8.6 MG TAB PO SCH ×2 (08:01→09:00)
[2017-08-05] MEDS: METOPROLOL TARTRATE 25 MG TAB PO SCH (08:01)
[2017-08-05] MEDS: PRAVASTATIN SOD 40 MG TAB PO SCH (08:01)
[2017-08-05] MEDS: FLECAINIDE ACETATE 100 MG TAB PO SCH (08:01)
[2017-08-05] MEDS: guaiFENesin E.R. 600 MG TAB PO SCH (08:02)
[2017-08-05] MEDS: SODIUM CHLORIDE 0.9% FLUSH 10 ML FLUSH IV FLUSH SCH (08:02)
[2017-08-05] MEDS: TIOTROPIUM BROMIDE 18 MCG INH INH SCH (08:03)
[2017-08-05] MEDS: LOSARTAN 50 MG TAB PO SCH (08:10)
[2017-08-05 08:22] LABS: BICARBONATE 24.4 MEQ/L (21.0-32.0); CALCIUM 8.4 MG/DL (8.5-10.1); CREATININE 0.3 MG/DL (0.50-1.00)
[2017-08-05] MEDS ORDERED: POTASSIUM CHLORIDE 10 MEQ CAP PO SCH (10:00)
[2017-08-05] MEDS ORDERED: AZIT500T2 PO (11:31)
[2017-08-05] MEDS ORDERED: CLON.2 PO (11:31)
[2017-08-05] MEDS ORDERED: CEFU1TAB18 PO (11:31)
--- NOTE | 2017-08-05 11:31 | HHI.DCPOC ---
Discharge Care Plan Diagnosis: (1) PNA (pneumonia) (2) HTN (hypertension) (3) A-fib (4) Sepsis Goals to Promote Your Health * To prevent worsening of your condition and complications * To maintain your health at the optimal level Directions to Meet Your Goals Take your medications as prescribed Follow your dietary instruction Follow activity as directed Keep your appointments as scheduled Take your immunizations and boosters as scheduled If your symptoms worsen call your PCP, if no PCP go to Urgent Care Center or Emergency Room Smoking is Dangerous to Your Health. Avoid second hand smoke Call the 24-hour hour crisis hotline for domestic abuse at Juan M Squires MD Aug 05, 2017 11:31
--- NOTE | 2017-08-05 11:34 | HHI.DS ---
Discharge Summary Admission Date Aug 03, 2017 at 03:39 Discharge Date: Aug 05, 2017 Admitting Diagnosis pneumonia (1) Sepsis ICD Code: A41.9 - Sepsis, unspecified organism (2) PNA (pneumonia) ICD Code: J18.9 - Pneumonia, unspecified organism (3) HTN (hypertension) ICD Code: I10 - Essential (primary) hypertension (4) A-fib ICD Code: I48.91 - Unspecified atrial fibrillation Procedures None Brief History - From Admission This is a 67-year-old female with a PMH of HTN, A. fib on ASA and Arthritis presented to the ER with complaints of SOB and cough x2-3 days. States she's been having symptoms since March and has been on and off antibiotics as other family members have been sick as well. States she had been feeling better until a few days ago when she developed cough and congestion. Today w/ fever at home in addition to SOB. On arrival, BP 212/174, HR 113, O2 sat 97% on RA, Temp 101.7. WBC 21. Chemistry essentially unremarkable except for K+ 3.2. CXR with mild right base consolidation. S/p Blood Cultures, Rocephin/ Zithro in ER. CBC/BMP: 08/05/17 0605 08/05/17 0645 Significant Findings Laboratory Tests Test 08/03/17 01:45 08/03/17 03:00 08/04/17 07:05 08/05/17 06:05 White Blood Count 21.0 TH/MM3 (4.0-11.0) 15.2 TH/MM3 (4.0-11.0) Hematocrit 33.9 % (35.0-46.0) 31.1 % (35.0-46.0) 29.1 % (35.0-46.0) Mean Corpuscular Volume 75.0 FL (80.0-100.0) 76.8 FL (80.0-100.0) 77.4 FL (80.0-100.0) Mean Corpuscular Hemoglobin 26.0 PG (27.0-34.0) 26.1 PG (27.0-34.0) 26.5 PG (27.0-34.0) Neutrophils (%) (Auto) 89.4 % (16.0-70.0) 77.6 % (16.0-70.0) Lymphocytes (%) (Auto) 4.9 % (9.0-44.0) Neutrophils # (Auto) 18.8 TH/MM3 (1.8-7.7) 11.8 TH/MM3 (1.8-7.7) Monocytes # (Auto) 1.1 TH/MM3 (0-0.9) 1.2 TH/MM3 (0-0.9) Random Glucose 125 MG/DL (74-106) Potassium Level 3.2 MEQ/L (3.5-5.1) 3.3 MEQ/L (3.5-5.1) B-Type Natriuretic Peptide 140 PG/ML (0-100) Hemoglobin 10.6 GM/DL (11.6-15.3) 10.0 GM/DL (11.6-15.3) Creatinine 0.43 MG/DL (0.50-1.00) Total Protein 6.1 GM/DL (6.4-8.2) Albumin 3.1 GM/DL (3.4-5.0) Aspartate Amino Transf (AST/SGOT) 14 U/L (15-37) Red Blood Count 3.76 MIL/MM3 (4.00-5.30) Platelet Count 140 TH/MM3 (150-450) Monocytes (%) (Auto) 10.8 % (0.0-8.0) Test 08/05/17 06:45 Creatinine 0.30 MG/DL (0.50-1.00) Calcium Level 8.4 MG/DL (8.5-10.1) Imaging Last Impressions Chest X-Ray 08/03/17 0134 Signed Impressions: Service Date/Time: Thursday, August 03, 2017 01:43 - CONCLUSION: Mild right base consolidation. Panfilo Rosas MD PE at Discharge General: No acute distress. Heart: Regular rate and rhythm. No murmur. Lungs: Clear to auscultation bilaterally. No wheezes, rales, or rhonchi. Breathing is nonlabored. Abdomen: Soft, nontender, nondistended. Extremities: No lower extremity edema. Psych: Alert and oriented. Pt update on day of discharge The patient states that she feels much better today. She wants to go home. Dyspnea and cough have improved. No complaints at this time. Hospital Course Patient was admitted for management of sepsis secondary to pneumonia. She was continued on antibiotics. Her symptoms improved throughout the hospitalization. On the day of discharge she had no shortness of breath and was stable on room air. She requested discharge home. Pt Condition on Discharge: Stable Discharge Disposition: Discharge Home Discharge Time: <= 30 minutes Discharge Instructions DIET: Follow Instructions for: Heart Healthy Diet Activities you can perform: Regular-No Restrictions Follow up Referrals: PCP Follow-up - 1 Week with Janis Reza MD New Medications: Azithromycin (Azithromycin) 500 Mg Tab 500 MG PO DAILY for Infection, #5 TAB 0 Refills Cefuroxime (Ceftin) 250 Mg Tab 250 MG PO BID for Infection, #10 TAB 0 Refills Clonidine (Catapres) 0.2 Mg Tab 0.2 MG PO DAILY@1600 for Blood Pressure Management, #30 TAB Continued Medications: Amlodipine (Norvasc) 5 Mg Tab 5 MG PO BID for Blood Pressure Management, #30 TAB 0 Refills Aspirin (Aspirin) 81 Mg Tab 81 MG PO DAILY, 0 Refills Flecainide Acetate (Flecainide Acetate) Unknown Strength Tab 50 MG PO Q12, TAB Furosemide (Furosemide) 20 Mg Tab 40 MG PO DAILY Losartan Potassium (Cozaar) 100 Mg Tab 100 MG PO Metoprolol Tartrate 25 mg (Metoprolol Tartrate 25 mg) 25 Mg Tab 25 MG PO BID, TAB Potassium Chloride ER (Potassium Chloride ER) 10 Meq Cap 10 MEQ PO DAILY for Electrolyte Replacement, #30 CAP 0 Refills Simvastatin (Simvastatin) 20 Mg Tab 20 MG PO DAILY for Cholesterol Management, #30 TAB 0 Refills Tiotropium Inh (Spiriva Handihaler) 18 Mcg Cap 18 MCG INH DAILY for COPD, #30 CAP 0 Refills 1 capsule = 18 mcg Tramadol Hcl (Ultram) 50 Mg Tab 50 MG PO Q6H PRN for PAIN SCALE 4 TO 10, #20 TAB FOR PAIN Discontinued Medications: Clonidine (Clonidine) 0.3 Mg Tab 0.3 MG PO DAILY for Blood Pressure Management, #60 TAB 0 Refills Clonidine 0.1 mg (Catapres 0.1 mg) 0.1 Mg Tab 0.1 MG PO BID, #60 0 Refills Ibuprofen (Motrin) 800 Mg Tab 800 MG PO TIDPRN, #30 FOR PAIN Juan M Squires MD Aug 05, 2017 11:34
== END 2017-08-05 12:38 | disposition home or self-care (01) | DRG 871 ==
LOC: NEPE 23:36 → NEDA 08-03 03:39 → N04A 08-03 04:46
PROVIDERS: ADMIT Family Medicine; ATTEND Family Medicine
DX: A41.9 Sepsis, unspecified organism (principal); J18.9 Pneumonia, unspecified organism; I48.2 Chronic atrial fibrillation; E87.6 Hypokalemia; I10 Essential (primary) hypertension; M19.90 Unspecified osteoarthritis, unspecified site; Z96.641 Presence of right artificial hip joint; Z87.01 Personal history of pneumonia (recurrent)
CPT/HCPCS: 71045; 80048; 80053; 83605; 83735; 83880; 85025; 87040; 87804; 93005; 94640; 94664; 96361; 96365; 96375; 99285; J0456; J0696; J1650; J2930; J3480; J7030; J7040; J7050